=== PATIENT | male | born 1970 | race Caucasian/White ===

== ENCOUNTER 2017-12-28 08:43 | Emergency (ER) | payer BC ==
--- NOTE | 2017-12-28 09:21 | EDM.PDOC ---
ED HPI GENERAL MEDICAL PROBLEM - General Chief Complaint: Gastrointestinal Problem Stated Complaint: BLOOD IN URINE Time Seen by Provider: 12/28/17 09:04 - History of Present Illness INITIAL COMMENTS - FREE TEXT/NARRATIVE: HISTORY AND PHYSICAL: History of present illness: The patient is a 47-year-old male with no significant medical history no GI history and presents with complaints blood in his stool that started on Sunday, 5 days ago. The patient says he has never had an endoscopy or colonoscopy and does not eat a healthy diet, he does not eat fiber and does not hydrate. The patient admits that he drinks 6 beers a day on a regular basis but has no upper abdominal pain and no lower abdominal pain. He has not been dizzy lightheaded and is not had chest pain shortness of breath vomiting or diarrhea. He says that when he has a bowel movement the stool character varies depending on what he eats but it is not watery diarrhea. Is not black or bloody. He says that when he passes the stool there is no discomfort in his abdomen or in his anorectal area but when he looks in the toilet he sees stool which is brown in color with blood in the toilet bowl. He says he does not believe that the blood is in the stool but it is in the water of the toilet bowl. He has only been having one bowel movement a day. He was concerned about this and scheduled an appointment with Dr. Montoya at [facility] next week but he said he presented today because last evening he came home from work and he had a bowel movement and he thought there was more blood than prior bowel movements. He has never been told that he has a hemorrhoid. His urine is normal. Review of systems: As per history of present illness and below otherwise all systems reviewed and negative. Past medical history: As per history of present illness and as reviewed below otherwise noncontributory. Surgical history: As per history of present illness and as reviewed below otherwise noncontributory. Social history: No reported history of drug or alcohol abuse. Family history: As per history of present illness and as reviewed below otherwise noncontributory. Physical exam: General: Well-developed well-nourished man who is nontoxic and vital signs have been reviewed by me. He moves easily without distress HEENT: Atraumatic, normocephalic, pupils reactive, negative for conjunctival pallor or scleral icterus, mucous membranes moist, throat clear, neck supple, nontender, trachea midline. Lungs: Clear to auscultation, breath sounds equal bilaterally, chest nontender. Heart: S1S2, regular, negative for clicks, rubs, or JVD. Abdomen: Soft, nondistended, nontender. Negative for masses or hepatosplenomegaly. Negative for costovertebral tenderness. Pelvis: Stable nontender. Genitourinary: Deferred. Rectal: There are no external hemorrhoids or fissures visualized and rectal tone is normal. On digital exam there is a small amount of light brown stool in the vault which has some specks of blood in it and it is Hemoccult positive. There are no masses appreciated on digital exam. Extremities: Atraumatic, negative for cords or calf pain. Neurovascular unremarkable. Neuro: Awake, alert, oriented. Cranial nerves II through XII unremarkable. Cerebellum unremarkable. Motor and sensory unremarkable throughout. Exam nonfocal. Diagnostics: CBC CMP INR orthostatic vitals Therapeutics: I discussed with the patient that he would likely need colonoscopy to be performed and Dr. Montoya can arrange that next week at [facility] but I will also give him referrals to our surgeons. We will proceed to check his labs and his orthostatic vitals and if they are within normal limits I will have him continue to monitor his stools and try to modify his diet and alcohol use. I will advise on reasons to return in the ED and impress upon him the need to follow-up in the clinic Impression: Rectal bleeding/blood in the stool Definitive disposition and diagnosis as appropriate pending reevaluation and review of above. - Related Data Allergies Allergy/AdvReac Type Severity Reaction Status Date / Time No Known Allergies Allergy Verified 12/28/17 08:51 Home Meds: Home Meds . [No Known Home Meds] 03/12/14 [History] Past Medical History - Infectious Disease History Infectious Disease History: Reports: Chicken Pox, Mumps - Past Surgical History GI Surgical History: Reports: Hernia, Inguinal Other GI Surgeries/Procedures: 2 right side inguinal hernia repairs Social & Family History - Family History Family Medical History: Noncontributory - Tobacco Use Smoking Status *Q: Never Smoker Second Hand Smoke Exposure: Yes - Caffeine Use Caffeine Use: Reports: Soda - Alcohol Use Days Per Week of Alcohol Use: 7 Number of Drinks Per Day: 6 Total Drinks Per Week: 42 - Recreational Drug Use Recreational Drug Use: No ED ROS GENERAL - Review of Systems Review Of Systems: ROS reveals no pertinent complaints other than HPI. ED EXAM, GENERAL - Physical Exam Exam: See Below (See dictation) Course - Vital Signs Last Recorded V/S: Last Vital Signs Temp 36.9 C 12/28/17 08:51 Pulse 83 12/28/17 08:51 Resp 16 12/28/17 08:51 BP 152/98 H 12/28/17 08:51 Pulse Ox 97 12/28/17 08:51 Orthostatic Blood Pressure [ 169/92 Standing] Orthostatic Blood Pressure [ 168/96 Sitting] Orthostatic Blood Pressure [ 173/98 Supine] - Orders/Labs/Meds Orders: Active Orders 24 hr Category Date Time Status Communication Order [RC] STAT Care 12/28/17 09:13 Active Orthostatic Vital Signs [RC] ASDIRECTED Care 12/28/17 09:14 Active Labs: Laboratory Tests 12/28/17 12/28/17 12/28/17 Range/Units 09:27 09:27 09:27 WBC 3.92 L (4.0-11.0) K/uL RBC 5.36 (4.50-5.90) M/uL Hgb 16.6 (13.0-17.0) g/dL Hct 47.5 (38.0-50.0) % MCV 88.6 (80.0-98.0) fL MCH 31.0 (27.0-32.0) pg MCHC 34.9 (31.0-37.0) g/dL RDW Std Deviation 44.8 (28.0-62.0) fl RDW Coeff of Leonard 14 (11.0-15.0) % Plt Count 207 (150-400) K/uL MPV 9.90 (7.40-12.00) fL Neut % (Auto) 58.5 (48.0-80.0) % Lymph % (Auto) 29.8 (16.0-40.0) % Rincon % (Auto) 10.2 (0.0-15.0) % Eos % (Auto) 1.0 (0.0-7.0) % Baso % (Auto) 0.5 (0.0-1.5) % Neut # (Auto) 2.3 (1.4-5.7) K/uL Lymph # (Auto) 1.2 (0.6-2.4) K/uL Rincon # (Auto) 0.4 (0.0-0.8) K/uL Eos # (Auto) 0.0 (0.0-0.7) K/uL Baso # (Auto) 0.0 (0.0-0.1) K/uL Nucleated RBC % 0.0 /100WBC Nucleated RBCs # 0 K/uL INR 0.99 Sodium 138 (136-148) mmol/L Potassium 4.2 (3.5-5.1) mmol/L Chloride 100 (98-107) mmol/L Carbon Dioxide 26.3 (21.0-32.0) mmol/L BUN 14 (7.0-18.0) mg/dL Creatinine 1.2 (0.8-1.3) mg/dL Est Cr Clr Drug Dosing 81.73 mL/min Estimated GFR (MDRD) > 60.0 ml/min Glucose 154 H (74-106) mg/dL Calcium 8.7 (8.5-10.1) mg/dL Total Bilirubin 0.6 (0.2-1.0) mg/dL AST 45 H (15-37) U/L ALT 60 (14-63) U/L Alkaline Phosphatase 76 (46-116) U/L Total Protein 7.3 (6.4-8.2) g/dL Albumin 3.8 (3.4-5.0) g/dL Globulin 3.5 (2.0-3.5) g/dL Albumin/Globulin Ratio 1.1 L (1.3-2.8) Departure - Departure Time of Disposition: 10:09 Disposition: Home, Self-Care 01 Condition: Good Clinical Impression: Blood in the stool, Rectal bleeding - Discharge Information Referrals: PCP,None [Primary Care Provider] - Forms: ED Department Discharge Additional Instructions: The following information is given to patients seen in the emergency department who are being discharged to home. This information is to outline your options for follow-up care. We provide all patients seen in our emergency department with a follow-up referral. The need for follow-up, as well as the timing and circumstances, are variable depending upon the specifics of your emergency department visit. If you don't have a primary care physician on staff, we will provide you with a referral. We always advise you to contact your personal physician following an emergency department visit to inform them of the circumstance of the visit and for follow-up with them and/or the need for any referrals to a consulting specialist. The emergency department will also refer you to a specialist when appropriate. This referral assures that you have the opportunity for followup care with a specialist. All of these measure are taken in an effort to provide you with optimal care, which includes your followup. Under all circumstances we always encourage you to contact your private physician who remains a resource for coordinating your care. When calling for followup care, please make the office aware that this follow-up is from your recent emergency room visit. If for any reason you are refused follow-up, please contact the [facility] emergency department at and ask to speak to the emergency department charge nurse. [address] [place] [address] [facility] [address] [place] [address] [address] [place] [address] Please keep your appointment with Dr. Montoya next week and also contact our surgery clinic for further care and evaluation for a colonoscopy as we discussed. Please monitor your dietary intake and your stools as we discussed and return to ER as needed and as discussed. Reduce or eliminate alcohol use and increase water in her diet. Please also try to increase fiber in her diet. - My Orders Last 24 Hours: My Active Orders 12/28/17 09:13 Communication Order [RC] STAT 12/28/17 09:14 Orthostatic Vital Signs [RC] ASDIRECTED - Assessment/Plan Last 24 Hours: My Active Orders 12/28/17 09:13 Communication Order [RC] STAT 12/28/17 09:14 Orthostatic Vital Signs [RC] ASDIRECTED
[2017-12-28 10:01] LABS: CHLORIDE,CL 100 mmol/L (98-107); SODIUM,NA 138 mmol/L (136-148)
== END 2017-12-28 10:25 | disposition home or self-care (01) ==
LOC: MW.ED 08:43
DX: K62.5 Hemorrhage of anus and rectum (principal); Z77.22 Contact with and (suspected) exposure to environmental tobacco smoke (acute) (chronic); Z98.890 Other specified postprocedural states
CPT/HCPCS: 36415; 80053; 85025; 85610; 99284

== ENCOUNTER 2018-01-08 09:03 | Day surgery (SDC) | payer BC ==
[~2018-01-08 09:03] MED LIST: Lactated Ringers 1,000 ML IV SCH
[2018-01-08] MEDS ORDERED: Lidocaine 2% 5 ML SDV ONE (09:32)
[2018-01-08] MEDS ORDERED: Propofol 200 MG/20 ML SDV ONE ×3 (09:33→10:17)
[2018-01-08] MEDS ORDERED: Midazolam 1 MG/ML 2 ML SDV ONE (09:33)
[2018-01-08] MEDS ORDERED: fentaNYL 100 MCG/2 ML SDV ONE (09:33)
[2018-01-08] MEDS ORDERED: Glycopyrrolate 0.2 MG/ML SDV ONE ×2 (09:40→10:18)
[2018-01-08] MEDS ORDERED: Benzocaine 20% Topical Spray UD MUCMEM ONE (09:48)
--- NOTE | 2018-01-08 09:48 | PCM.PREANE ---
Preanesthetic Assessment - Anesthesia/Transfusion/Family Hx Anesthesia History: Prior Anesthesia Without Reaction Family History of Anesthesia Reaction: No Transfusion History: No Prior Transfusion(s) - Review of Systems General: No Symptoms Pulmonary: No Symptoms Cardiovascular: No Symptoms Gastrointestinal: No Symptoms Neurological: No Symptoms Other: Reports: None - Physical Assessment NPO Status Date: 01/07/18 O2 Sat by Pulse Oximetry: 97 Respiratory Rate: 16 Vital Signs: Last Vital Signs Temp 36.3 C 01/08/18 09:11 Pulse 75 01/08/18 09:11 Resp 16 01/08/18 09:11 BP 160/98 H 01/08/18 09:11 Pulse Ox 97 01/08/18 09:11 Height: 1.8 m Weight: 97.976 kg ASA Class: 1 Mental Status: Alert & Oriented x3 Airway Class: Mallampati = 1 Dentition: Reports: Normal Dentition ROM/Head Extension: Full Lungs: Clear to Auscultation, Normal Respiratory Effort Cardiovascular: Regular Rate, Regular Rhythm - Allergies Allergies/Adverse Reactions: Allergies Allergy/AdvReac Type Severity Reaction Status Date / Time No Known Allergies Allergy Verified 12/28/17 08:51 - Anesthesia Plan Pre-Op Medication Ordered: None - Acknowledgements Anesthesia Type Planned: MAC Pt an Appropriate Candidate for the Planned Anesthesia: Yes Alternatives and Risks of Anesthesia Discussed w Pt/Guardian: Yes Pt/Guardian Understands and Agrees with Anesthesia Plan: Yes PreAnesthesia Questionnaire Other HEENT History: wears glasses Musculoskeletal History: Reports: Fracture Other Musculoskeletal History: hx of fx left leg and arm - Infectious Disease History Infectious Disease History: Reports: Chicken Pox, Mumps - Past Surgical History GI Surgical History: Reports: Hernia, Abdominal, Hernia, Inguinal Other GI Surgeries/Procedures: hx of umbilical hernia repair - SUBSTANCE USE Smoking Status *Q: Never Smoker Second Hand Smoke Exposure: Yes Days Per Week of Alcohol Use: 7 Number of Drinks Per Day: 6 Total Drinks Per Week: 42 Recreational Drug Use History: No - HOME MEDS Home Medications: Home Meds . [No Known Home Meds] 03/12/14 [History] - CURRENT (IN HOUSE) MEDS Current Meds: Current Medications Lactated Ringer's (Ringers, Lactated) 1,000 mls @ 125 mls/hr IV ASDIRECTED SAJI Last Admin: 01/08/18 09:19 Dose: 125 mls/hr Discontinued Medications Fentanyl (Sublimaze) Confirm Administered Dose 100 mcg .ROUTE .STK-MED ONE Stop: 01/08/18 09:34 Glycopyrrolate (Robinul) Confirm Administered Dose 0.2 mg .ROUTE .STK-MED ONE Stop: 01/08/18 09:41 Lidocaine (Xylocaine-Mpf 2%) Confirm Administered Dose 5 ml .ROUTE .STK-MED ONE Stop: 01/08/18 09:33 Midazolam HCl (Versed 1 Mg/Ml) Confirm Administered Dose 2 mg .ROUTE .STK-MED ONE Stop: 01/08/18 09:34 Propofol (Diprivan 20 Ml) Confirm Administered Dose 400 mg .ROUTE .STK-MED ONE Stop: 01/08/18 09:34
--- NOTE | 2018-01-08 10:55 | PCM.OPNOTE ---
- General Post-Op/Procedure Note Date of Surgery/Procedure: 01/08/18 Operative Procedure(s): egd w bx. colonoscopy w snare polypectomy Findings: see [id number] Pre Op Diagnosis: BRBPR Post-Op Diagnosis: gastritis and polyp Primary Surgeon: Adiel Terrazas Pathology: egd bx colon polyp at 50cm and 90 cm when scope went in, 4 mm sessile polyps; and 8 mm sessile polyp at 12 cm rectum, snare polypectomy Complications: None Condition: Good
--- NOTE | 2018-01-08 11:20 | PCM.POSTAN ---
POST ANESTHESIA ASSESSMENT - MENTAL STATUS Mental Status: Alert, Oriented - RESPIRATORY Respiratory Status: Respiratory Rate WNL, Airway Patent, O2 Saturation Stable - CARDIOVASCULAR CV Status: Pulse Rate WNL, Blood Pressure Stable - GASTROINTESTINAL GI Status: No Symptoms - POST OP HYDRATION Hydration Status: Adequate & Stable
--- NOTE | 2018-01-08 11:21 | PCM48HPAN ---
Post Anesthesia Note - EVALUATION WITHIN 48HRS OF ANESTHETIC Vital Signs in Normal Range: Yes Patient Participated in Evaluation: Yes Respiratory Function Stable: Yes Airway Patent: Yes Cardiovascular Function Stable: Yes Hydration Status Stable: Yes Pain Control Satisfactory: Yes Nausea and Vomiting Control Satisfactory: Yes Mental Status Recovered: Yes Resp Rate: 14
--- NOTE | 2018-01-08 16:22 | OR ---
SURGEON: Adiel Terrazas MD DATE OF PROCEDURE: 01/08/2018 PREOPERATIVE DIAGNOSIS: Bright red blood per rectum. POSTOPERATIVE DIAGNOSES: Esophagogastroduodenoscopy diagnosis is gastritis and colonoscopy diagnosis is colon polyp. PROCEDURES PERFORMED: Esophagogastroduodenoscopy with biopsy and colonoscopy with snare polypectomy. PROCEDURE IN DETAIL: EGD: The patient was taken to the endoscopy room, and with the [employer]IST [employer]ATIONSHIP MANAGER, Diprivan was administered. A well-lubricated EGD scope was gently inserted through the oropharynx, down the esophagus, passing through the gastroesophageal junction, into the stomach. The mucosa was examined upon the passage. Any etiology will be noted. Once in the stomach, we continued to advance to the distal antrum, passed through the pylorus into the second portion of the duodenum. Again, the mucosa was examined for any abnormality and etiology. The scope was then retrieved back to the stomach and then retroflexed to look at the fundus of the stomach. If a biopsy was indicated, we will biopsy the antrum, body, and gastroesophageal junction. The air will be sucked out while the scope is retrieved to reduce the patient's discomfort. The patient tolerated the procedure well. There were no intraoperative complications. Dr. Terrazas was present through the whole procedure. Prior to surgery, a time-out had been called, the patient identified, procedure identified and antibiotic administered. The patient was taken to the endoscopy room. A time out was called, patient identified, and procedure identified. Diprivan was then administrated. Patient went from awake to sleep, hearing doctor talking or door closing is normal. Perineum inspection and digital examination were then performed. A well- lubricated colonoscope was gently inserted through the rectum, advanced past the rectosigmoid junction, the descending colon, splenic flexure, transverse colon, hepatic flexure, ascending colon, arrived to the cecum. Cecum was identified as dictated in the finding. Then the scope was carefully withdrawn while attention was paid to the mucosal surface for any abnormality. Air will be sucked out during the scope withdrawal. At the rectum, retroflexed to examine any rectal diseases, fistula or hemorrhoids. During mucosal examination, abnormality or polyp encountered. Using snare equipment, the abnormality or the polyp was then snared off using electrocautery. The Patient tolerated procedure well. There were no intraoperative complications, and Dr. Terrazas was present throughout the whole procedure. FINDINGS: EGD findings: 1. The patient is easily sedated with [employer]ATION[employer]IP MANAGER and Diprivan. The patient is soundly snoring. 2. The patient's oropharynx and proximal esophagus are free of disease. No infection, stricture, or inflammation. Distal esophagus at GE junction at 40 shows like a Schatzki ring and with mild salmon color change consistent with acid reflux. Stomach rugae is normal in appearance, and there is some spectacle of old blood dusky in appearance. That means it is not like a blood clot and a little bit inflamed antrum. There is no amol ulcer observed. Duodenum is grossly normal in appearance. The scope was retroflexed looked at the fundus of the stomach. The patient has Schatzki ring and hiatal hernia. A biopsy done of the antrum, body, GE junction at 40, and sucked out the air. Colonoscopy findings: 1. The patient is easily sedated with [employer]ATIONSHIP MANAGER and Diprivan. The patient is soundly snoring. 2. Bowel prep is left to be desirable. There is a lot of bubble on the lower half of the colon, and there was no bubble on the upper half of the colon, and the colon is rather straight forward. Cecum is indicated by ileocecal fold, one-to-one indentation, light emittance, and appendiceal orifice. Mucosa was examined upon scope pulling out, and the patient has two small polyps around 3 to 4 mm when the scope goes in at distance 50 and at distance 90, removed with cold biopsy forceps. The patient has one slightly larger polyp around 10 to 12 cm from the rectum at the scope distant, removed with snare polypectomy and sent for pathology. Otherwise, the patient does not have diverticulosis, although mass, growth, inflammation, stricture, AV malformation, ulceration, bleeding, none of those. The patient has mild internal hemorrhoids, no external hemorrhoids. The patient would benefit from a repeat colonoscopy in 3 years from today or if clinically indicated otherwise or if the polyp pathology indicated otherwise. GEORGE / HEATH /[id number]
== END 2018-01-08 11:45 | disposition home or self-care (01) ==
LOC: MW.SDS 09:03
PROVIDERS: ATTEND Surgery
DX: D12.6 Benign neoplasm of colon, unspecified (principal); K64.8 Other hemorrhoids
CPT/HCPCS: 43239; 45385; J2250; J3010; J7120; 88305; 88312; J2704